=== PATIENT | male | born 1985 | race Caucasian/White ===

== ENCOUNTER 2020-05-14 23:05 | Emergency (ER) | payer OTHER ==
[~2020-05-14] VITALS: Ht 172.7 cm; Wt 86.2 kg
[~2020-05-14 23:05] MED LIST: CEPH500 PO; HYDACE5 PO; IBUP400; NAPR220
== END 2020-05-15 03:17 | disposition home or self-care (01) ==
LOC: ER 23:05
DX: S61.412A Laceration without foreign body of left hand, initial encounter (principal); Z23 Encounter for immunization; W26.0XXA Contact with knife, initial encounter
CPT/HCPCS: 12001; 90471; 90714; 99282